=== PATIENT | female | born 1990 | race Caucasian/White ===

== ENCOUNTER 2017-09-02 10:18 | Day surgery (SDC) | payer BC, OTHER ==
[~2017-09-02 10:18] MED LIST: Lactated Ringers 1,000 ML IV SCH; Lidocaine 2% 5 ML SDV ONE; Midazolam 1 MG/ML 2 ML SDV ONE; Propofol 200 MG/20 ML SDV ONE; Sodium Chloride 0.9% 10 ML Syringe FLUSH PRN; Sodium Chloride 0.9% 2.5 ML Syringe FLUSH PRN; fentaNYL 100 MCG/2 ML SDV ONE
--- NOTE | 2017-09-02 10:50 | PCM.PREANE ---
Preanesthetic Assessment - Anesthesia/Transfusion/Family Hx Anesthesia History: Prior Anesthesia Without Reaction Type of Anesthesia Reaction: Other (see below) (slow to wake up) Family History of Anesthesia Reaction: No Transfusion History: No Prior Transfusion(s) Intubation History: Unknown - Review of Systems General: No Symptoms Pulmonary: No Symptoms Cardiovascular: No Symptoms Gastrointestinal: No Symptoms Neurological: No Symptoms Other: Reports: None - Physical Assessment Height: 1.64 m Weight: 58.06 kg ASA Class: 1 Mental Status: Alert & Oriented x3 Airway Class: Mallampati = 1 Dentition: Reports: Normal Dentition Thyro-Mental Finger Breadths: 3 Mouth Opening Finger Breadths: 3 ROM/Head Extension: Full Lungs: Clear to Auscultation, Normal Respiratory Effort Cardiovascular: Regular Rate, Regular Rhythm - Allergies Allergies/Adverse Reactions: Allergies Allergy/AdvReac Type Severity Reaction Status Date / Time ethinyl estradiol Allergy Anaphylactic Verified 08/27/17 09:54 [From [id number]] Shock norgestimate Allergy Anaphylactic Verified 08/27/17 09:54 [From [id number]] Shock trazodone Allergy Anaphylactic Verified 08/27/17 09:54 Shock - Blood Blood Available: No - Anesthesia Plan Pre-Op Medication Ordered: None - Acknowledgements Anesthesia Type Planned: MAC Pt an Appropriate Candidate for the Planned Anesthesia: Yes Alternatives and Risks of Anesthesia Discussed w Pt/Guardian: Yes Pt/Guardian Understands and Agrees with Anesthesia Plan: Yes PreAnesthesia Questionnaire - Past Health History Medical/Surgical History: Denies Medical/Surgical History HEENT History: Reports: Other (See Below) Other HEENT History: uses reading glasses Musculoskeletal History: Reports: Other (See Below) Other Musculoskeletal History: chronic bilateral shoulder pain Neurological History: Reports: Concussion Psychiatric History: Reports: Anxiety Endocrine/Metabolic History: Reports: Other (See Below) Other Endocrine/Metabolic History: states is Hypoglycemic Dermatologic History: Reports: Other (See Below) Other Dermatologic History: get frequent rashes- thinks it is from anxiety - Past Surgical History HEENT Surgical History: Reports: Tonsillectomy GI Surgical History: Reports: Colonoscopy - SUBSTANCE USE Smoking Status *Q: Never Smoker Second Hand Smoke Exposure: Yes Days Per Week of Alcohol Use: 0 Recreational Drug Use History: No - HOME MEDS Home Medications: Home Meds Ibuprofen [Advil] 200 mg PO Q6H 08/27/17 [History] - CURRENT (IN HOUSE) MEDS Current Meds: Current Medications Lactated Ringer's (Ringers, Lactated) 1,000 mls @ 125 mls/hr IV ASDIRECTED ROSELIA Sodium Chloride (Saline Flush) 10 ml FLUSH ASDIRECTED PRN PRN Reason: Keep Vein Open Sodium Chloride (Saline Flush) 2.5 ml FLUSH ASDIRECTED PRN PRN Reason: Keep Vein Open Discontinued Medications Fentanyl (Sublimaze) Confirm Administered Dose 100 mcg .ROUTE .STK-MED ONE Stop: 09/02/17 09:29 Lidocaine (Xylocaine-Mpf 2%) Confirm Administered Dose 5 ml .ROUTE .STK-MED ONE Stop: 09/02/17 09:29 Midazolam HCl (Versed 1 Mg/Ml) Confirm Administered Dose 2 mg .ROUTE .STK-MED ONE Stop: 09/02/17 09:30 Propofol (Diprivan 20 Ml) Confirm Administered Dose 400 mg .ROUTE .STK-MED ONE Stop: 09/02/17 09:29
[2017-09-02] MEDS ORDERED: Ketorolac 30 MG/ML SDV ONE (11:43)
[2017-09-02] MEDS ORDERED: Acetaminophen/oxyCODONE 325-5 MG Tab PO PRN (11:50)
--- NOTE | 2017-09-02 12:01 | PCM.OPNOTE ---
- General Post-Op/Procedure Note Date of Surgery/Procedure: 09/02/17 Operative Procedure(s): Loop Electrosurgical Excision Procedure Findings: Grossly normal appearing cervix. No paracervical nodularity Ectocervix stained deeply with Lugol. Pre Op Diagnosis: ROSE MARIE 2 Post-Op Diagnosis: Same Anesthesia Technique: MAC Primary Surgeon: Summer Boo Pathology: LEEP specimen tagged at 12 0'clock, ECC EBL in mLs: 3 Complications: None Condition: Good
--- NOTE | 2017-09-02 12:07 | PCM.POSTAN ---
POST ANESTHESIA ASSESSMENT - MENTAL STATUS Mental Status: Alert, Oriented - RESPIRATORY Respiratory Status: Respiratory Rate WNL - CARDIOVASCULAR CV Status: Pulse Rate WNL, Blood Pressure Stable - GASTROINTESTINAL GI Status: No Symptoms - PAIN Pain Score: 0 - POST OP HYDRATION Hydration Status: Adequate & Stable - OBSERVATIONS Free Text/Narrative:: no anesthesia problems
--- NOTE | 2017-09-02 12:57 | PCM48HPAN ---
Post Anesthesia Note - EVALUATION WITHIN 48HRS OF ANESTHETIC Vital Signs in Normal Range: Yes Patient Participated in Evaluation: Yes Respiratory Function Stable: Yes Airway Patent: Yes Cardiovascular Function Stable: Yes Hydration Status Stable: Yes Pain Control Satisfactory: Yes Nausea and Vomiting Control Satisfactory: Yes Mental Status Recovered: Yes Resp Rate: 15 - COMMENTS/OBSERVATIONS Free Text/Narrative:: no anesthesia problems
--- NOTE | 2017-09-03 10:10 | OR ---
SURGEON: Summer Boo MD DATE OF PROCEDURE: 09/02/2017 PREOPERATIVE DIAGNOSIS: Moderate cervical dysplasia (cervical intraepithelial neoplasia 2). POSTOPERATIVE DIAGNOSIS: Moderate cervical dysplasia (cervical intraepithelial neoplasia 2). PROCEDURE: Cervical loop electrosurgical excision procedure, LEEP. ANESTHESIA: MAC. ESTIMATED BLOOD LOSS: Minimal. COMPLICATIONS: None. BRIEF HISTORY: The patient is a 26-year-old lady who has had recurrent abnormal Pap smear. The most recent Pap smear was LGSIL with positive HPV. She underwent colposcopy- directed biopsies and they were consistent with both ROSE MARIE 1 and ROSE MARIE 2. The findings including management options were discussed with the patient and the patient consented to proceed with operative procedure in the form of a LEEP. The risks of the procedure were explained in detail including, but not limited to bleeding, infection, and inability to excise the lesion completely, which might lead to further procedures, injury to adjacent structures. She was also counseled regarding the possible long-term risk of premature labor/premature rupture of membrane due to shortened cervix/cervical insufficiency and also increased risk of cervical stenosis leading to possible hematocolpos. Understanding this risk, she accepted to proceed with the surgery. Appropriate consent was obtained. DESCRIPTION OF PROCEDURE: The patient was taken to the operating room. After given a suitable level of MAC anesthesia, she was placed in dorsal lithotomy position, prepped and draped in the usual sterile fashion for vaginal LEEP procedure. A time-out was held. Examination under anesthesia revealed a normal-sized anteverted uterus. No palpable adnexal masses. No parametrial or paracervical nodularity was palpated. A bivalve coated speculum was then placed into the vagina with good visualization of the cervix obtained. Vagina was cleaned out. Then the cervix was injected with 1% lidocaine with epinephrine in 1:100,000 dilution using to perform a paracervical block. Thereafter, using the standard technique and the loop size of 15 x 12 mm, a standard LEEP procedure was performed. The cervical specimen was removed circumferentially and tagged at 12 o'clock. Endocervical curetting was then performed and the samples were collected with Cytobrush. Hemostasis was achieved with cautery bulb. The instruments were removed from the patient's vagina. Instrument and sponge counts were correct at the end of the procedure. The patient tolerated the procedure well and was taken to the recovery room in stable condition. MARITOV / LORENZO /[id number]
== END 2017-09-02 12:55 | disposition home or self-care (01) ==
LOC: MW.SDS 10:18
PROVIDERS: ATTEND Obstetrics & Gynecology
DX: N87.1 Moderate cervical dysplasia (principal); F41.9 Anxiety disorder, unspecified; Z90.89 Acquired absence of other organs; Z88.8 Allergy status to other drugs, medicaments and biological substances
CPT/HCPCS: 36415; 57522; 84703; 85027; J1885; J2250; J3010; J7120; J2704